=== PATIENT | female | born 1965 | race Two or more races ===

== ENCOUNTER 2024-09-20 12:18 | Emergency (ER) | payer OTHER ==
[~2024-09-20] VITALS: Ht 157.5 cm; Wt 56.7 kg
[2024-09-20] MEDS ORDERED: ECOTRIN81 MG (12:28)
[2024-09-20] MEDS ORDERED: FOSAMAX70 MG PO (12:28)
[2024-09-20] MEDS ORDERED: ELIQUIS5 MG PO (12:28)
[2024-09-20] MEDS ORDERED: BREO ELLIPTA 21 EACH IH (12:29)
[2024-09-20] MEDS ORDERED: BACLOFEN5 MG PO (12:30)
[2024-09-20] MEDS ORDERED: KETOROLAC TROMETHAMINE 60 MG VIAL IM ONE (14:30)
[2024-09-20] MEDS ORDERED: IBUPROFEN800 MG PO (15:32)
== END 2024-09-20 18:14 | disposition home or self-care (01) ==
LOC: ER 12:18
DX: S92.211A Displaced fracture of cuboid bone of right foot, initial encounter for closed fracture (principal); W19.XXXA Unspecified fall, initial encounter; Y93.89 Activity, other specified; Y92.89 Other specified places as the place of occurrence of the external cause; Y99.9 Unspecified external cause status; I67.1 Cerebral aneurysm, nonruptured; Z88.0 Allergy status to penicillin; Z88.8 Allergy status to other drugs, medicaments and biological substances